=== PATIENT | male | born 1955 | race Caucasian/White ===

== ENCOUNTER 2017-09-30 18:12 | Emergency (ER) | payer BC ==
[2017-09-30 18:22] VITALS: BP 140/79; BMI 31.7
[2017-09-30 19:30] LABS: BASOPHILS # (AUTO) 0.1 X10^3/uL (0.0-0.1); BASOPHILS % (AUTO) 0.4 % (0.2-1.0); EOSINOPHILS % (AUTO) 0.1 % (0.9-2.9); HEMATOCRIT 36.7 % (42.0-54.0); HEMOGLOBIN 12.8 g/dL (13.5-18.0); LYMPHOCYTES # (AUTO) 0.9 X10^3/uL (1.3-2.9); LYMPHOCYTES % (AUTO) 5.7 % (21.0-51.0); MEAN CORPUSCULAR HEMOGLOBIN 29.1 pg (27.0-34.0); MEAN CORPUSCULAR VOLUME 83.1 fL (80.0-100.0); MONOCYTES # (AUTO) 1.4 x10^3/uL (0.3-0.8); MONOCYTES % (AUTO) 9.1 % (0.0-13.0); NEUTROPHILS # (AUTO) 13.4 x10^3/uL (2.2-4.8); NEUTROPHILS % (AUTO) 84.7 % (42.0-75.0); PLATELET COUNT 226 X10^3/uL (150.0-450.0); RED BLOOD COUNT 4.42 X10^6/uL (4.7-6.0); RED CELL DISTRIBUTION WIDTH 13.3 % (11.6-16.5); WHITE BLOOD COUNT 15.8 X10^3/uL (3.6-10.0)
[2017-09-30 19:42] LABS: ALANINE AMINOTRANSFERASE 37 Units/L (12-78); ALBUMIN 3.3 g/dL (3.4-5.0); ALKALINE PHOSPHATASE 63 Units/L (46-116); ASPARTATE AMINO TRANSFERASE 42 Units/L (15-37); BLOOD UREA NITROGEN 14 mg/dL (7-18); CALCIUM 8.6 mg/dL (8.5-10.1); CARBON DIOXIDE 27.1 mmol/L (21-32); CHLORIDE 103 mmol/L (98-107); COR CA(FOR HYPOALB) 9.2 mg/dL (8.5-10.1); COR NA(FOR HYPERGLY) 137 mmol/L (136-145); CREATININE 0.94 mg/dL (0.70-1.30); SODIUM 136 mmol/L (136-145); eGFR BLACK RACES > 60 (>60); eGFR NON BLACK RACES > 60 (>60)
[2017-09-30] MEDS ORDERED: ZOFRAN INJ 4 MG VIAL IM ONE (19:49)
[2017-09-30] MEDS ORDERED: MORPHINE SULFATE INJ 4 MG ONE (19:49)
[2017-09-30] MEDS ORDERED: ZOFRAN INJ 4 MG VIAL ONE (19:49)
[2017-09-30] MEDS ORDERED: MORPHINE SULFATE INJ 4 MG IM ONE (19:49)
--- NOTE | 2017-09-30 19:50 | DR.GENAD ---
HPI - PCP Primary Care Physician: Dr. Vizcarra - Complaint/Symptoms Chief Complaint:: pt had prostatectomy yesterday with Dr. Pravin Samaniego in [place] at [facility]. Was discharged home today and around 12:30 today temp was up to 102.2. Took Tylenol at 1:00. Called MD and was instructed to come to ER for lab work Self Treatment fo Chief Complaint: Took tylenol at home - Source History Provided: Patient - Mode of Arrival Mode of Arrival: Wheelchair - Timing Onset of Chief Complaint: 09/30/17 PMH - PMH Past Medical History: Yes Past Medical History: Angina, Arthritis, Coronary Artery Disease, Diabetes, Dyslipidemia, GERD, Hypertension Past Medical History Comment: Chronic Back Pain Past Surgical History: Yes Surgical History: Angioplasty/Stents, Tonsillectomy, Other Past Surgical History Comment: prostatectomy, cataract removal - Family History History of Family Medical Conditions: Yes Family Medical History: Diabetes Mellitus, Cancer, Coronary Artery Disease, Heart Failure, Hypertension - Social History Does patient currently use any type of tobacco product: No Have you used tobacco products in the last 12 months: No Type of Tobacco Use: None Does any household member use tobacco: No Alcohol Use: None Do you use any recreational Drugs:: No Lives With: Spouse Lives Where: Home - infectious screening In the last 2 months have you had wt loss of >10#?: NO Have you had fever, night sweats or hemotysis?: No Have you traveled outside the country in the last 6 months?: No Isolation: Standard PE - Vital Signs Vitals: Temperature 99.9 F Pulse Rate 104 Respiratory Rate 24 Blood Pressure 140/79 O2 Sat by Pulse Oximetry 97 ROR - Labs Reviewed Result Diagrams: 09/30/17 19:15 09/30/17 19:15 Laboratory: WBC 15.8 X10^3/uL (3.6-10.0) H 09/30/17 19:15 RBC 4.42 X10^6/uL (4.7-6.0) L 09/30/17 19:15 Hgb 12.8 g/dL (13.5-18.0) L 09/30/17 19:15 Hct 36.7 % (42.0-54.0) L 09/30/17 19:15 MCV 83.1 fL (80.0-100.0) 09/30/17 19:15 MCH 29.1 pg (27.0-34.0) 09/30/17 19:15 MCHC 35.0 g/dL (33.0-35.0) 09/30/17 19:15 RDW 13.3 % (11.6-16.5) 09/30/17 19:15 Plt Count 226 X10^3/uL (150.0-450.0) 09/30/17 19:15 MPV 9.0 fL (7.4-11.0) 09/30/17 19:15 Neut % 84.7 % (42.0-75.0) H 09/30/17 19:15 Lymph % 5.7 % (21.0-51.0) L 09/30/17 19:15 [place] % 9.1 % (0.0-13.0) 09/30/17 19:15 Eos % 0.1 % (0.9-2.9) L 09/30/17 19:15 Baso % 0.4 % (0.2-1.0) 09/30/17 19:15 Neut # 13.4 x10^3/uL (2.2-4.8) H 09/30/17 19:15 Lymph # 0.9 X10^3/uL (1.3-2.9) L 09/30/17 19:15 [place] # 1.4 x10^3/uL (0.3-0.8) H 09/30/17 19:15 Eos # 0.0 x10^3/uL (0.0-0.2) 09/30/17 19:15 Baso # 0.1 X10^3/uL (0.0-0.1) 09/30/17 19:15 Absolute Nucleated RBC 0.0 /100WBC 09/30/17 19:15 Sodium 136 mmol/L (136-145) 09/30/17 19:15 Corrected Sodium 137 mmol/L (136-145) 09/30/17 19:15 Potassium 4.1 mmol/L (3.5-5.1) 09/30/17 19:15 Chloride 103 mmol/L (98-107) 09/30/17 19:15 Carbon Dioxide 27.1 mmol/L (21-32) 09/30/17 19:15 BUN 14 mg/dL (7-18) 09/30/17 19:15 Creatinine 0.94 mg/dL (0.70-1.30) 09/30/17 19:15 Est GFR (MDRD) Af Amer > 60 (>60) 09/30/17 19:15 Est GFR (MDRD) Non-Af > 60 (>60) 09/30/17 19:15 Glucose 130 mg/dL (65-99) H 09/30/17 19:15 Lactic Acid 1.0 mmol/L (0.4-2.0) 09/30/17 19:15 Calcium 8.6 mg/dL (8.5-10.1) 09/30/17 19:15 Corrected Calcium 9.2 mg/dL (8.5-10.1) 09/30/17 19:15 Total Bilirubin 0.80 mg/dL (0.2-1.0) 09/30/17 19:15 AST 42 Units/L (15-37) H 09/30/17 19:15 ALT 37 Units/L (12-78) 09/30/17 19:15 Alkaline Phosphatase 63 Units/L (46-116) 09/30/17 19:15 Total Protein 7.0 g/dL (6.4-8.2) 09/30/17 19:15 Albumin 3.3 g/dL (3.4-5.0) L 09/30/17 19:15 Globulin 3.7 g/dL (2.5-4.5) 09/30/17 19:15 Albumin/Globulin Ratio 0.9 Ratio (1.1-2.1) L 09/30/17 19:15 Specimen Type Catherized urine 09/30/17 19: Urine Color Bloody (YELLOW) 09/30/17 19: Urine Appearance Hazy (CLEAR) 09/30/17: Urine pH 7.0 (5.0 - 8.0) 09/30/17: Ur Specific [place] 1.015 (1.000-1.030) 09/30/17: Urine Protein 3+ (NEGATIVE) 09/30/17 Urine Glucose (UA) Negative (NEGATIVE) 09/30/17 Urine Ketones 2+ (NEGATIVE) 01/23/18 19:27 Urine Occult Blood 5+ (NEGATIVE) 09/30/17 19:27 Urine Nitrite Negative (NEGATIVE) 09/30/17 19:27 Urine Bilirubin Negative (NEGATIVE) 09/30/17 19:27 Urine Urobilinogen Normal (NORMAL) 09/30/17 19:27 Ur Leukocyte Esterase 3+ (NEGATIVE) 09/30/17 19:27 Urine RBC Tntc /HPF (NEGATIVE) 09/30/17 19:27 Urine WBC 10-12 /HPF (NEGATIVE) 09/30/17 19:27 Ur Squamous Epith Cells Negative /HPF (NEGATIVE) 09/30/17 19:27 Amorphous Sediment 1+ /HPF (NEGATIVE) 09/30/17 19:27 Urine Bacteria 1+ /HPF (NEGATIVE) 09/30/17 19:27 Ur Culture Indicated? Yes/culture set up 09/30/17 19:27 - Discharge Plan Condition: Stable Prescriptions: Ciprofloxacin HCl [CIPRO 500 MG TAB *] 500 mg PO Q12H #20 tab - Follow ups/Referrals Follow ups/Referrals: JAMES VIZCARRA V [Primary Care Provider] - 2 days - Instructions Instructions: Laparoscopic Prostatectomy, Urinary Tract Infection, Adult, Easy- to-Read Additional Instructions: RETURN TO ED IF WORSE.
[2017-09-30 19:51] LABS: BILIRUBIN,URINE NEGATIVE (NEGATIVE); BLOOD/HEMOGLOBIN,URINE 5+ (NEGATIVE); GLUCOSE, URINE NEGATIVE (NEGATIVE); KETONES,URINE 2+ (NEGATIVE); LEUKOCYTE ESTERASE ,URINE 3+ (NEGATIVE); NITRITES,URINE NEGATIVE (NEGATIVE); PROTEIN,URINE 3+ (NEGATIVE); UROBILINOGEN,URINE NORMAL (NORMAL)
[2017-09-30 20:01] LABS: AMORPHOUS SEDIMENT,UR 1+ /HPF (NEGATIVE); APPEARANCE,URINE HAZY (CLEAR); BACTERIA,URINE 1+ /HPF (NEGATIVE); COLOR,URINE BLOODY (YELLOW); RBC,URINE TNTC /HPF (NEGATIVE); SQUAMOUS EPITHELIAL CELL,UR NEGATIVE /HPF (NEGATIVE)
[2017-09-30] MEDS ORDERED: ROCEPHIN VIAL 1 GM 1 GM in NS 100 ML IV + SPIKE MINIBAG* 100 ML IV ONE (20:23)
[2017-09-30] MEDS ORDERED: ROCEPHIN VIAL 1 GM ONE (20:25)
[2017-09-30] MEDS ORDERED: NS 100 ML IV + SPIKE MINIBAG* 100 ML IV ONE (20:25)
[2017-09-30] MEDS ORDERED: CIPRO TAB 500 MG PO ONE ×2 (21:03→21:11)
== END 2017-09-30 21:13 | disposition home or self-care (01) ==
LOC: ER 18:27
DX: N39.0 Urinary tract infection, site not specified (principal); Z90.79 Acquired absence of other genital organ(s)
CPT/HCPCS: 36415; 80053; 81001; 83605; 85025; 87040; 87086; 90471; 96365; 96374; 96375; 99282; 99283; A4222; J0696; J2270; J2405